=== PATIENT | female | born 1965 | race Caucasian/White ===

== ENCOUNTER 2022-05-09 11:55 | Outpatient (CLI) | payer OTHER, SELFPAY ==
[2022-05-09 10:45] LABS: Albumin* 4.7 g/dL (3.3-5.0); Chloride* 105 mmol/L (96-114)
[2022-05-09 10:46] LABS: Potassium* 4.3 mmol/L (3.6-5.1); Sodium* 139 mmol/L (135-149)
[2022-05-09 10:48] LABS: Bilirubin Total* 0.6 mg/dL (0.1-1.5); Blood Urea Nitrogen* 12 mg/dL (7-30); Carbon Dioxide* 26 mmol/L (20-32); Cholesterol* 190 mg/dL (90-199); Creatinine* 0.7 mg/dL (0.5-1.5); Estimated Glomerular Filt Rate 101 ml/min; Total Protein* 7.6 g/dL (6.0-8.3)
[2022-05-09 10:49] LABS: Alanine Aminotransferase* 26 U/L (4-35); Alkaline Phosphatase* 104 U/L (40-150); Aspartate Amino Transferase* 28 U/L (12-35); Calcium* 9.9 mg/dL (8.4-10.6); Glucose* 122 mg/dL (60-115); HDL Cholesterol* 51 mg/dL (>=50); LDL Cholesterol Calculated 116 mg/dL (<100); Triglycerides* 117 mg/dL (40-149)
[2022-05-09 11:11] LABS: Creatinine Urine 88.8 mg/dL
[2022-05-09 11:15] LABS: Microalbumin Creatinine Ratio 50 mg/g (0-30); Microalbumin Urine 5 mg/dL
== END 2022-05-09 11:56 | disposition home or self-care (01) ==
PROVIDERS: PCP Family Medicine; Visit Provider Family Medicine
DX: Z01.419 Encounter for gynecological examination (general) (routine) without abnormal findings (principal); E11.9 Type 2 diabetes mellitus without complications; E78.5 Hyperlipidemia, unspecified; R80.9 Proteinuria, unspecified
CPT/HCPCS: 80053; 80061; 82043; 82570

== ENCOUNTER 2022-07-07 15:39 | Outpatient (CLI) | payer OTHER, SELFPAY ==
--- NOTE | 2022-07-07 15:40 | CRLHL7_ITS ---
For Patients: As a result of the Cures Act, medical imaging exams and procedure reports are released immediately into your electronic medical record. You may view this report before your referring provider. If you have questions, please contact your health care provider. BILATERAL SCREENING MAMMOGRAM WITH COMPUTER-AIDED DETECTION AND TOMOSYNTHESIS TECHNIQUE: CC and MLO views were obtained. These mammographic images have been obtained using full-field digital technique. These mammographic images were interpreted with the benefit of computer-aided detection. Breast Tomosynthesis was used in this interpretation. COMPARISON FILM: 07/06/21, 06/11/20, 04/06/20 FINDINGS: There are scattered areas of fibroglandular density. IMPRESSION: There is no radiographic evidence for malignancy. ASSESSMENT: BI-RADS Category 1: Negative RECOMMENDATION: Routine screening mammogram in 1 year. A lay language report of this examination will be provided to the patient. Ganga Lawson M.D. Diagnostic Radiologist [email or web address]/[email or web address] Transcribed: 12:30 p.m. PT/Dictated by: Ganga Lawson MD @ 07/08/2022 8:27:00 AM (Electronically Signed)
== END 2022-07-07 15:40 | disposition home or self-care (01) ==
LOC: MAMMO 15:39
PROVIDERS: PCP Family Medicine; Visit Provider Family Medicine
DX: Z12.31 Encounter for screening mammogram for malignant neoplasm of breast (principal)
CPT/HCPCS: 77063; 77067

== ENCOUNTER 2022-11-07 07:39 | Outpatient (CLI) | payer OTHER, SELFPAY | END 2022-11-07 07:40 | disposition home or self-care (01) | LOC: NFLDREF 12:16 | PROVIDERS: PCP Family Medicine; Referring Provider Family Medicine; Visit Provider Family Medicine | DX: R80.9 Proteinuria, unspecified (principal); E11.9 Type 2 diabetes mellitus without complications; E66.01 Morbid (severe) obesity due to excess calories; E78.5 Hyperlipidemia, unspecified | CPT/HCPCS: 80048; 80061; 82043; 82570 ==

== ENCOUNTER 2023-05-24 07:42 | Outpatient (CLI) | payer BC, SELFPAY ==
--- OUTSIDE RECORDS SUMMARY | 2023-05-31 12:27 | XMS_ITS | Clinical Summary ---
Author Name Unknown Organization [facility] Address [place], [place] [address] Care Team Providers Care Billing Collections Specialist Name Role Phone Adelia Adame MD Primary Care Provider + Allergies Active Allergy Reactions Criticality Noted Date Comments Sulfa (Sulfonamide Antibiotics) Rash 09/21 Medications Medication Sig Dispensed Refills Start Date End Date Status prednisoLONE acetate 1% ophthalmic (PRED FORTE) suspension Place 1 Drop into right eye 4 times daily. 0 Active ketorolac 0.5 % ophthalmic (ACULAR) solution 0 Active cholecalciferol, vitamin D3, (VITAMIN D3 ORAL) Take by mouth. 0 Active multivitamin (MULTIPLE VITAMIN ORAL) Take by mouth. 0 Active Encounters Date Type Department Care Team Description 05/26/2023 Lab Requisition [facility] [phone] Adelia Adame MD from Last 3 Months Social History Tobacco Use Types Packs/Day Years Used Date Smoking Tobacco: Never Smokeless Tobacco: Never Tobacco Cessation:Counseling Given: Yes Alcohol Use Standard Drinks/Week Comments Yes 0 (1 standard drink = 0.6 oz pur e alcohol) social Sex and Gender Information Value Date Recorded Sex Assigned at Not on file Gender Identity Not on file Sexual Orientation Not on file Obstetrics History Last Filed Vital Signs Vital Sign Reading Time Taken Comments Blood Pressure 158/89 12/03/2018 4:08 PM CDT Pulse 91 12/03/2018 4:08 PM CDT Temperature 36.9 ??C (98.4 ??F) 12/03/2018 11:34 AM C DT Respiratory Rate 20 12/03/2018 4:08 PM CDT Oxygen Saturation 96% 12/03/2018 4:08 PM CDT Inhaled Oxygen Concentration - - Weight 108.4 kg (239 lb) 11/30/2018 5:12 AM CDT Height 149.9 cm (4' 11) 11/30/2018 5:12 AM CDT Body Mass Index 48.27 11/30/2018 5:12 AM CDT Plan of Treatment Health Maintenance Due Date Last Done Comments COVID-19 vaccine series (#1) 05/24/1966 Tdap 1976 Depression screening for age 12+ 1977 HIV for age 15-65 1980 Hepatitis C screening for age 18-79 11/22/1983 Tetanus booster 1985 Colonoscopy through age 75 2010 Lipids for age 45-75 2010 Mammogram for age 45-75 2010 Zoster (shingles) series for age 50+ (1 of 2) 11/22/2015 BMI (ht and wt on same day) for age 18+ 01/11/2018 01/11/2017 Influenza for age 50-64 01/20/2023 Pap test for age 21-65 05/26/2026 4, 03/22/2018, 03/22/2018, Additional history exists Pneumococcal series for age 6-64 Aged Out No longer eligible based on patient's age to complete this topic Procedures Procedure Name Priority Date/Time Associated Diagnosis Comments LAB TRACKING EVENT Routine 05/26/2023 7: [address] MAGISTRATE HPV THIN PREP Routine 05/26/2023 7:[address] MAGISTRATE from Last 3 Months Results * LAB TRACKING EVENT (05/26/2023 7:[address] MAGISTRATE) Other (Other) Client Collect / Unknown 05/26/2023 7:[address] MAGISTRATE 05/26/2023 3:[address] MAGISTRATE Adelia dAame MD LAB BILL ONLY [facility] [address] [place] [address], * HPV HIGH RISK (05/26/2023 7:[address] MAGISTRATE) TYPE 16 Negative Negative 05/30/2023 1:[address] MAGISTRATE [facility] TR[facility] LAB[facility]AT[facility] TYPE 18 Negative Negative 05/30/2023 1:[address] MAGISTRATE [facility] TRA LABORATORY OTHER HIGH RISK TYPES Negative Negative 05/30/2023 1:[address] MAGISTRATE [facility] Other (Cervical/Vagina l) 05/26/2023 7:[address] MAGISTRATE 05/29/2023 11:[address] MAGISTRATE Narrative [facility] - 05/30/2023 1:[address] MAGISTRATE HPV types 16, 18, 31, 33, 35, 39, 45, 51, 52, 56, 58, 59, 66 and 68 DNA were undetectable or below the pre-set threshold. Methodology: Uriel Asim 4800 HPV Test Adelia Adame MD MICROBIOLOGY [facility] [address] [place] [id number], from Last 3 Months Advance Directives Latest Code Status on File Code Status Date Activated Date Inactivated Comments Full Code 12/03/2018 11:19 AM 12/03/2018 6:25 PM Question Answer Comments Code Status Discussion: Not Discussed Care Teams Billing Collections Specialist Relationship Specialty Start Date End Date Adelia Adame MD [address] [place] [address] PCP - General Family Practice 11/28/18
== END 2023-05-24 07:43 | disposition home or self-care (01) ==
LOC: NFLDREF 05-31 12:25
PROVIDERS: PCP Family Medicine; Referring Provider Family Medicine; Visit Provider Family Medicine
DX: Z01.419 Encounter for gynecological examination (general) (routine) without abnormal findings (principal); E11.9 Type 2 diabetes mellitus without complications; M81.0 Age-related osteoporosis without current pathological fracture; E78.5 Hyperlipidemia, unspecified; E66.01 Morbid (severe) obesity due to excess calories; R80.9 Proteinuria, unspecified
CPT/HCPCS: 80053; 80061; 82043; 82306; 82570

== ENCOUNTER 2023-07-11 15:39 | Outpatient (CLI) | payer BC, SELFPAY ==
--- NOTE | 2023-07-11 15:40 | MM_ITS ---
Final Report Patient: JAMILAH KERNS Facility:?[facility] Patient ID:?[id number] Study:?XRay Breast Bilateral 3D W/CAD-07/11/2023 5:28:17 PM Ordering Physician:Adelia Goddard Final Report: BILATERAL SCREENING MAMMOGRAM WITH COMPUTER-AIDED DETECTION AND TOMOSYNTHESIS TECHNIQUE: CC and MLO views were obtained. These mammographic images have been obtained using full-field digital technique. These mammographic images were interpreted with the benefit of computer-aided detection. Breast Tomosynthesis was used in this interpretation. COMPARISON FILM: 07/07/22, 07/06/21, 06/11/20. FINDINGS: There are scattered areas of fibroglandular density. IMPRESSION: There is no radiographic evidence for malignancy. ASSESSMENT: BI-RADS Category 2: Benign RECOMMENDATION: Routine screening mammogram in 1 year. A lay language report of this examination will be provided to the patient. Ganga Lawson M.D. Diagnostic Radiologist [email or web address] DSM/sp R& Transcribed: 4:36 p.m. SP/Dictated by: Ganga Lawson MD @ 07/12/2023 10:10:00 AM (Electronic Signature)
--- OUTSIDE RECORDS SUMMARY | 2023-07-11 15:44 | XMS_ITS | Clinical Summary ---
Author Name Unknown Organization [facility] Address [place], [place] [address] Care Team Providers Care Block Sealer Name Role Phone Adelia Adame MD Primary [...] Department Care Team Description 05/26/2023 Lab Requisition [facility] [phone] Adelia Adame MD from Last 3 Months [...] Pap test for age 21-65 05/26/2026 4, 05/26/2023, 03/22/2018, Additional history exists Pneumococcal series for age 6-64 Aged Out No longer eligible based on patient's age to complete this topic Procedures Procedure Name Priority Date/Time Associated Diagnosis Comments LAB TRACKING EVENT Routine 05/26/2023 7: 57 AM POURING CRANE OPERATOR VOCATIONAL REHABILITATION TECHNICIAN THIN PREP PAP SCREEN IMAGED Routine 05/26/2023 7:57 AM POURING CRANE OPERATOR HPV THIN PREP Routine 05/26/2023 7:57 AM POURING CRANE OPERATOR from Last 3 Months Results * LAB TRACKING EVENT (05/26/2023 7:57 AM POURING CRANE OPERATOR) Other (Other) Client Collect / Unknown 05/26/2023 7:57 AM POURING CRANE OPERATOR 05/26/2023 3:34 PM POURING CRANE OPERATOR Adelia Adame MD LAB BILL ONLY [facility]AT[facility] [address] [place] [address], * VOCATIONAL REHABILITATION TECHNICIAN THIN PREP PAP SCREEN IMAGED (05/26/2023 7:57 AM POURING CRANE OPERATOR) Case Report Gynecologic Cytology Report ? Case: [id number] ? Authorizing Provider: ??Adelia Adame MD ??Collected: ? 05/26/2023 0757 ? Ordering Location: ? [facility] ?Received: ?05/29/2023 1131 ? First Screen: ?Sotero Coley ? Specimen: ?VOCATIONAL REHABILITATION TECHNICIAN ThinPrep Vial Screening, Cervical/Vaginal ? 06/01/2023 12:51 PM POURING CRANE OPERATOR [facility]-C ENTRAL LABORATORY INTERPRETATION/ RESULT NEGATIVE FOR INTRAEPITHELIAL LESION OR MALIGNANCY (NIL) (none) 06/01/2023 12:51 PM POURING CRANE OPERATOR [facility]AL LABORATORY IMEN ADEQUACY Satisfactory for evaluation No endocervical component seen 06/01/2023 12:51 PM POURING CRANE OPERATOR [facility] HPV REQUEST HPV and PAP 06/01/2023 12:51 PM POURING CRANE OPERATOR [facility]AL LABORATORY Date of LMP 06/01/2023 12:51 PM POURING CRANE OPERATOR [facility] EN[facility] Comment:unknown Last Pap Date 03/22/2018 06/01/2023 12:51 PM POURING CRANE OPERATOR [facility] Last Pap Result NIL 12:51 PM POURING CRANE OPERATOR [facility] EN[facility] Abnormal Pap or Draper Bx in last 5 years No 06/01/2023 12:51 PM POURING CRANE OPERATOR [facility] Menstrual Status Postmenopausal 06/01/2023 12:51 PM POURING CRANE OPERATOR [facility] Draper Bx Done Today No 06/01/2023 12:51 PM POURING CRANE OPERATOR [facility] Additional Information 06/01/2023 12:51 PM POURING CRANE OPERATOR [facility] Comment: Interpreted at [facility] - [address] [place] [id number] Automated Review Successful 06/01/2023 12:51 PM POURING CRANE OPERATOR [facility] Comment:Specimen processed s uccessfully by automated household appliance installer device, [employer] System, [employer] ANCILLARY TESTING VOCATIONAL REHABILITATION TECHNICIAN HPV Ordered, Please see separate report 06/01/2023 12:51 PM POURING CRANE OPERATOR [facility] Note The pap test is a screening technique, not a diagnostic procedure. It is used primarily to screen for squamous cancers and precursor lesions. Published studies have shown that it is subject to both false negative and false positive results. The pap test should not be used as the sole means to diagnose or exclude pre-malignant and malignant lesions. 06/01/2023 12:51 PM POURING CRANE OPERATOR [facility] Other (Cervical/Vagina l) 05/26/2023 7:57 AM POURING CRANE OPERATOR 05/29/2023 11:31 AM POURING CRANE OPERATOR Adelia Adame MD PATHOLOGY/CYTOLO GY [facility] [address] [place] [address], * HPV HIGH RISK (05/26/2023 7:57 AM POURING CRANE OPERATOR) TYPE 16 Negative Negative 05/30/2023 1:48 PM POURING CRANE OPERATOR [facility] TRAL LABORATORY TYPE 18 Negative Negative 05/30/2023 1:48 PM POURING CRANE OPERATOR [facility] TR[facility] LABORAT[facility] OTHER HIGH RISK TYPES Negative Negative 05/30/2023 1:48 PM POURING CRANE OPERATOR [facility] Other (Cervical/Vagina l) 05/26/2023 7:57 AM POURING CRANE OPERATOR 05/29/2023 11:31 AM POURING CRANE OPERATOR Narrative [facility] - 05/30/2023 1:48 PM POURING CRANE OPERATOR HPV types 16, 18, 31, 33, 35, 39, 45, 51, 52, 56, 58, 59, 66 and 68 DNA were undetectable or below the pre-set threshold. Methodology: Uriel Asim 4800 HPV Test Adelia Adame MD MICROBIOLOGY [facility] [address] [address], from Last 3 Months Advance Directives Latest Code Status on File Code Status Date Activated Date Inactivated Comments Full Code 12/03/2018 11:19 AM 12/03/2018 6:25 PM Question Answer Comments Code Status Discussion: Not Discussed Care Teams Block Sealer Relationship Specialty Start Date End Date Adelia Adame MD [address] [place] [address] PCP - General Family Practice 11/28/18
== END 2023-07-11 15:40 | disposition home or self-care (01) ==
LOC: MAMMO 15:39
PROVIDERS: PCP Family Medicine; Visit Provider Family Medicine
DX: Z12.31 Encounter for screening mammogram for malignant neoplasm of breast (principal)
CPT/HCPCS: 77063; 77067

== ENCOUNTER 2023-11-10 07:37 | Outpatient (CLI) | payer BC, SELFPAY ==
--- OUTSIDE RECORDS SUMMARY | 2023-11-14 16:26 | XMS_ITS | Clinical Summary ---
Author Organization [facility] Address [place], [place] [address] Care Team Providers Care Edger Technician Name Role Phone Adelia Adame MD Primary Care Provider + Allergies Active Allergy Reactions Criticality Noted Date Comments Sulfa (Sulfonamide Antibiotics) Rash 09/21 Medications Medication Sig Dispensed Refills Start Date End Date Status prednisoLONE acetate 1% ophthalmic (PRED FORTE) suspension Place 1 Drop into right eye 4 times daily. Active ketorolac 0.5 % ophthalmic (ACULAR) solution Active cholecalciferol, vitamin D3, (VITAMIN D3 ORAL) Take by mouth. Active multivitamin (MULTIPLE VITAMIN ORAL) Take by mouth. Active Social History Tobacco Use Types Packs/Day Years [...] Health Maintenance Due Date Last Done Comments Tdap 1976 Depression screening for age 12+ 1977 HIV for age 15-65 1980 Hepatitis C screening for age 18-79 11/22/1983 Tetanus booster 1985 Colonoscopy through age 75 2010 Lipids for age 45-75 2010 Mammogram for age 45-75 2010 Zoster (shingles) series for age 50+ (1 of 2) 11/22/2015 BMI (ht and wt on same day) for age 18+ 01/11/2018 01/11/2017 COVID-19 vaccine series (2022- season) 2023 Influenza for age 50-64 01/21/2024 Pap test for age 21-65 05/26/2026 , 05/26/2023, 03/22/2018, Additional history exists Pneumococcal series for age 6-64 Aged Out No longer eligible based on patient's age to complete this topic Procedures Procedure Name Priority Date/Time Associated Diagnosis Comments HPV THIN PREP Routine 05/26/2023 7:57 AM MUSIC INDUSTRY INTERN from Last 3 Months or Most Recently Relevant to Health Maintenance Results * HPV HIGH RISK (05/26/2023 7:57 AM MUSIC INDUSTRY INTERN) TYPE 16 Negative Negative 05/30/2023 1:48 PM MUSIC INDUSTRY INTERN [facility] TYPE 18 Negative Negative 05/30/2023 1:48 PM MUSIC INDUSTRY INTERN [facility] TR[facility] LABORATORY OTHER HIGH RISK TYPES Negative Negative 05/30/2023 1:48 PM MUSIC INDUSTRY INTERN [facility] TRAL LABORATORY Other (Cervical/Vagina l) 05/26/2023 7:57 AM MUSIC INDUSTRY INTERN 05/29/2023 11:31 AM MUSIC INDUSTRY INTERN Narrative [facility]AT[facility] - 05/30/2023 1:48 PM MUSIC INDUSTRY INTERN HPV types 16, 18, 31, 33, 35, 39, 45, 51, 52, 56, 58, 59, 66 and 68 DNA were undetectable or below the pre-set threshold. Methodology: Uriel Asim 4800 HPV Test Ad[facility] [address] [place] [address], from Last 3 Months or Most Recently Relevant to Health Maintenance Advance Directives * Full Code (Latest Code Status on File) Date Activated Date Inactivated Comments 12/03/2018 11:19 AM 12/03/2018 6:25 PM Question Answer Comments Code Status Discussion: Not Discussed Care Teams Edger Technician Relationship Specialty Start Date End Date Adelia Adame MD [address] [place] [address] PCP - General Family Practice 11/28/18
== END 2023-11-10 07:38 | disposition home or self-care (01) ==
LOC: NFLDREF 11-14 16:24
PROVIDERS: PCP Family Medicine; Referring Provider Family Medicine; Visit Provider Family Medicine
DX: E78.5 Hyperlipidemia, unspecified (principal); E11.9 Type 2 diabetes mellitus without complications; E66.01 Morbid (severe) obesity due to excess calories; Z13.9 Encounter for screening, unspecified
CPT/HCPCS: 80053; 80061

== ENCOUNTER 2024-07-03 07:38 | Outpatient (CLI) | payer BC, SELFPAY | END 2024-07-03 07:39 | disposition home or self-care (01) | LOC: NFLDREF 07-06 02:34 | PROVIDERS: PCP Family Medicine; Referring Provider Family Medicine; Visit Provider Family Medicine | DX: E78.5 Hyperlipidemia, unspecified (principal); E11.29 Type 2 diabetes mellitus with other diabetic kidney complication; R80.9 Proteinuria, unspecified; R53.83 Other fatigue; Z79.85 Long-term (current) use of injectable non-insulin antidiabetic drugs | CPT/HCPCS: 80053; 80061; 82043; 82570 ==

== ENCOUNTER 2024-07-31 08:10 | Outpatient (CLI) | payer BC, SELFPAY ==
--- NOTE | 2024-07-31 08:15 | CRLHL7_ITS ---
For Patients: As a result of the Cures Act, medical imaging exams and procedure reports are released immediately into your electronic medical record. You may view this report before your referring provider. If you have questions, please contact your health care provider. BILATERAL SCREENING MAMMOGRAM WITH COMPUTER-AIDED DETECTION AND TOMOSYNTHESIS TECHNIQUE: CC and MLO views were obtained. These mammographic images have been obtained using full-field digital technique. These mammographic images were interpreted with the benefit of computer-aided detection. Breast tomosynthesis was used in this interpretation. COMPARISON FILM: 07/11/23, 07/07/22, 07/06/21. FINDINGS: There are scattered areas of fibroglandular density. IMPRESSION: There is no radiographic evidence for malignancy. ASSESSMENT: BI-RADS Category 1: Negative RECOMMENDATION: Routine screening mammogram in 1 year. A lay language report of this examination will be provided to the patient. GANGA GILMORE M.D. Diagnostic Radiologist [email or web address] MARGE/[email or web address] Transcribed: 08/02/2024, 1:[address]/Dictated by: Ganga Gilmore MD @ 07/31/2024 1:37:00 PM (Electronically Signed)
== END 2024-07-31 08:11 | disposition home or self-care (01) ==
LOC: MAMMO 08:10
PROVIDERS: PCP Family Medicine; Visit Provider Family Medicine
DX: Z12.31 Encounter for screening mammogram for malignant neoplasm of breast (principal)
CPT/HCPCS: 77063; 77067

== ENCOUNTER 2024-12-24 07:51 | Outpatient (CLI) | payer BC, SELFPAY | END 2024-12-24 07:52 | disposition home or self-care (01) | LOC: NFLDREF 12-25 18:06 | PROVIDERS: PCP Family Medicine; Referring Provider Family Medicine; Visit Provider Family Medicine | DX: E11.29 Type 2 diabetes mellitus with other diabetic kidney complication (principal); R80.9 Proteinuria, unspecified; E78.5 Hyperlipidemia, unspecified | CPT/HCPCS: 80053; 80061; 82043; 82570 ==